=== PATIENT | female | born 1950 | race Hispanic/Latino ===

== ENCOUNTER 2017-09-14 03:17 | Emergency (ER) | payer OTHER ==
[~2017-09-14] VITALS: Ht 152.4 cm; Wt 69.4 kg
[~2017-09-14 03:17] MED LIST: ATORVASTATIN CA40 MG; HYDROCODONE-AP1 EA28 PO; LEVOTHYROXINE200 MC1 PO; Z.0.CALCIUM 500+VI1 PO; Z.0.LISINOPRIL20 MG PO; Z.0.METOPROLOL TART2 PO; Z.0.ZOLPIDEM TARTRA1 PO
--- OUTSIDE RECORDS SUMMARY | 2017-09-14 03:20 | XMS REPORT | Clinical Summary ---
Author Author [employer] [facility] [employer] Address Unknown Phone Unavailable Care Team Providers Care Manager Mall Name Role Phone Asked, Pcp PCP Unavailable Allergies No Known Allergies Current Medications Prescription Sig. Disp. Refills Start End Date Status Date levothyroxine (SYNTHROID, 04/27/20 Active LEVOXYL) 175 mcg tablet 17 traMADol (ULTRAM) 50 mg 04/27/20 Active tablet 17 metoprolol tartrate 04/27/20 Active (LOPRESSOR) 50 mg tablet 17 atorvastatin (LIPITOR) 10 04/27/20 Active MG tablet 17 DUEXIS 800-26.6 mg tablet 04/03/20 Active 17 pioglitazone-metformin 03/31/20 Active (ACTOPLUS MET) 15-850 mg 17 per tablet mupirocin (BACTROBAN) 2 % Apply to the inside of 22 g 0 06/04/20 ointmentIndications: each nostril BID 5 days 17 17 Primary osteoarthritis of prior to surgery left knee Active Problems Problem Noted Date Primary osteoarthritis of left knee 06/05/2017 Overview: Added automatically from request for surgery [id number] Encounters Date Type Specialty Care Team Description 08/26/2017 Telephone Orthopedic Surgery Arnav Holloway MD 06/04/2017 Orders Only Orthopedic Surgery Arnav Holloway MD Primary osteoarthritis of left knee (Primary Dx) 05/13/2017 Telephone Orthopedic Surgery Arnva Holloway MD 05/07/2017 Telephone Orthopedic Surgery Arnav Holloway MD 05/01/2017 Office Visit Orthopedic Surgery Arnav Holloway MD Chronic pain of left knee (Primary Dx); Primary osteoarthritis of left knee after 09/13/2016 Social History Tobacco Use Types Packs/Day Years Used Date Never Smoker Sex Assigned at Date Recorded Not on file Last Filed Vital Signs Vital Sign Reading Time Taken Blood Pressure - - Pulse - - Temperature - - Respiratory Rate - - Oxygen Saturation - - Inhaled Oxygen - - Concentration Weight 77.1 kg (170 lb) 05/01/2017 10:22 AM MANAGER PE Height 152.4 cm (5') 05/01/2017 10:22 AM MANAGER PE Body Mass Index 33.2 05/01/2017 10:22 AM MANAGER PE Plan of Treatment Date Type Specialty Care Team Description 11/04/2017 Pre-Admit Pre-Admission Testing Arnav Holloway MD Testing [id number] [facility] Appointment [address] [place], [place] [id number] 11/12/2017 Surgery General Surgery Arnav Holloway MD LEFT TOTAL KNEE [id number] [facility] REPLACEMENT [address] [place], [place] [id number] 11/12/2017 Procedure Pass General Surgery 11/12/2017 [facility] General Surgery Arnav Holloway MD Encounter [id number] [facility] [address] [place], [place] [id number] 11/19/2017 Office [place] [id number] [facility] [address] [place], [place] [id number] Genoveva Viera, PT Health Maintenance Due Date Last Done Comments COLONOSCOPY 1999 MAMMOGRAM 1999 ZOSTER VACCINE 2009 PNEUMOCOCCAL 2014 POLYSACCHARIDE VACCINE AGE 65 AND OVER PNEUMOCOCCAL-13 2014 INFLUENZA VACCINE 01/14/2017 04/11/2011, 03/10/2009 Results * XR Knee 4+ Vw Left (05/01/2017 10:43 AM) Specimen Performing Laboratory [facility] [address] [place] [address] Narrative Knee X-rays: 4 views of the left knee were reviewed.The images demonstrates joint space narrowing, [id number] articulation, subchondral cysts, sclerosis, varus alignment and marginal osteophytes after 09/13/2016 Insurance Payer Benefit Subscriber ID Type Phone Address Plan / Group AETNA AETNA xxxxxxxxxx HMO HMO,POS,EP O, [place] [address]
[2017-09-14] MEDS ORDERED: NIFEDIPINE 10 MG CAP PO ONE (03:45)
[2017-09-14 04:21] LABS: BASOPHILS % 0.2 % (0.0-1.0); EOSINOPHILS # (AUTO) 0.3 (0.0-0.4); EOSINOPHILS % 3.5 % (0.0-6.0); HEMATOCRIT 38.4 % (34.2-44.1); HEMOGLOBIN 12.5 g/dL (12.0-16.0); LYMPHOCYTES # (AUTO) 2.3 (1.0-3.2); LYMPHOCYTES % 26.2 % (18.0-39.1); MEAN CORPUSCULAR HEMOGLOBIN 26.9 pg (28-32); MEAN CORPUSCULAR HGB CONC 32.6 g/dL (31-35); MEAN CORPUSCULAR VOLUME 82.6 fL (81-99); MONOCYTES # (AUTO) 0.7 (0.2-0.8); MONOCYTES % 7.8 % (4.4-11.3); NEUTROPHILS # (AUTO) 5.3 (2.1-6.9); PLATELET COUNT 323 x10e3/uL (140-360); RED BLOOD COUNT 4.65 x10e6/uL (3.6-5.1); RED CELL DISTRIBUTION WIDTH 13.7 % (11.7-14.4)
[2017-09-14 04:28] LABS: BILIRUBIN,URINE NEGATIVE (NEGATIVE); CLARITY,URINE CLEAR (CLEAR); COLOR,URINE YELLOW (YELLOW); KETONES,URINE NEGATIVE (NEGATIVE); LEUKOCYTE ESTERASE ,URINE NEGATIVE (NEGATIVE); NITRITE,URINE NEGATIVE (NEGATIVE); PROTEIN,URINE DIPSTICK TRACE (NEGATIVE); URINE UROBILINOGEN 0.2 mg/dL (0.2 - 1)
[2017-09-14 04:31] LABS: INR 0.89; PARTIAL THROMBOPLASTIN TIME 29.2 seconds (23.8-35.5); PROTHROMBIN TIME 11.3 seconds (11.9-14.5)
--- NOTE | 2017-09-14 04:37 | Diagnostic Imaging Report ---
CHEST SINGLE (PORTABLE), 09/14/2017 3:38 AM Technique: CHEST SINGLE (PORTABLE) Comparison: None available. Clinical history: Hypertension Findings: Limited by portable technique. Heart/mediastinum: Mildly prominent cardiomediastinal silhouette accentuated by AP portable technique. Lungs/pleural spaces: Infrahilar opacity likely vascular confluent/crowding. No consolidation or edema. No effusion or pneumothorax. Impression: 1. Lines/Tubes: None 2. No acute abnormality. Signed by: Dr Peace Melendrez MD on 09/14/2017 4:33 AM
[2017-09-14 04:39] LABS: BACTERIA,URINE RARE /HPF; EPITHELIAL CELLS,URINE RARE /LPF; RBC,URINE 0-5 /HPF (0-5)
[2017-09-14 04:40] LABS: ALBUMIN 3.6 g/dL (3.5-5.0); ALBUMIN/GLOBULIN RATIO 0.9 (0.8-2.0); ANION GAP 13.8 mmol/L (8-16); CALCIUM 9.6 mg/dL (8.4-10.2); CREATININE, SERUM 0.98 mg/dL (0.57-1.11); MAGNESIUM 2.1 MG/DL (1.3-2.1); POTASSIUM 3.8 mmol/L (3.5-5.1)
[2017-09-14] MEDS ORDERED: KETOROLAC TROMETHAMINE 30 MG/ML VIAL IV STA (04:54)
[2017-09-14] MEDS ORDERED: DIAZEPAM 2 MG TAB PO ONE (05:00)
--- NOTE | 2017-09-14 05:33 | Diagnostic Imaging Report ---
EXAMINATION: Head CT HISTORY: Headache, hypertension or less COMPARISON: None. TECHNIQUE: Multidetector axial images were obtained without contrast from the foramen magnum to the vertex . The images were reconstructed using brain and bone algorithms. Thin section brain images were reformatted into coronal and sagittal planes. Intravenous contrast: None. Motion/streaking artifact limits the evaluation of the study particularly near the vertex region.. FINDINGS: Parenchyma: 1. No abnormal densities. 2. No mass or hemorrhage. No CT evidence of acute territorial vascular insult. Extra-axial spaces:No abnormal density. No extra-axial fluid collections Brain volume: Normal for age. Ventricles: No hydrocephalus or displacement. Arteries: No density suggestive of thrombus. Dural sinuses: No abnormal density. Extra-axial spaces: No abnormal density. Foramen magnum: No mass, Chiari malformation, or basilar invagination. Sella: No obvious mass. Paranasal/mastoid sinuses: Imaged portions unremarkable. Skull/Scalp: No lytic or blastic lesions. No fractures. IMPRESSION: No acute intracranial abnormality, particularly no evidence of hemorrhage. Signed by: Dr. Gretchen Lassiter M.D. on 09/14/2017 5:30 AM
== END 2017-09-14 06:16 | disposition left against medical advice (07) ==
LOC: ER 03:17
DX: R51 Headache (principal); I10 Essential (primary) hypertension; E03.9 Hypothyroidism, unspecified
CPT/HCPCS: 36415; 70450; 71045; 80053; 81001; 82550; 82553; 83735; 84484; 85025; 85610; 85730; 93005; 99284; J1885

== ENCOUNTER 2022-09-05 04:55 | Emergency (ER) | payer OTHER ==
[~2022-09-05] VITALS: Ht 152.4 cm; Wt 77.1 kg
[2022-09-05] MEDS ORDERED: KETOROLAC TROMETHAMINE 30 MG/ML VIAL IV STA (05:04)
[2022-09-05 05:11] LABS: BASOPHILS % 0.4 % (0.0-1.0); EOSINOPHILS # (AUTO) 0.7 (0.0-0.4); EOSINOPHILS % 7.9 % (0.0-6.0); HEMATOCRIT 39.2 % (34.2-44.1); HEMOGLOBIN 12.2 g/dL (12.0-16.0); LYMPHOCYTES # (AUTO) 2.7 (1.0-3.2); LYMPHOCYTES % 32.6 % (18.0-39.1); MEAN CORPUSCULAR HEMOGLOBIN 27.3 pg (28-32); MEAN CORPUSCULAR HGB CONC 31.1 g/dL (31-35); MEAN CORPUSCULAR VOLUME 87.7 fL (81-99); MONOCYTES # (AUTO) 0.7 (0.2-0.8); MONOCYTES % 7.9 % (4.4-11.3); NEUTROPHILS # (AUTO) 4.2 (2.1-6.9); NEUTROPHILS % 50.7 % (38.7-80.0); PLATELET COUNT 288 x10e3/uL (140-360); RED BLOOD COUNT 4.47 x10e6/uL (3.6-5.1); RED CELL DISTRIBUTION WIDTH 13.5 % (11.7-14.4)
[2022-09-05 05:24] LABS: INR 0.81; PROTHROMBIN TIME 11.7 seconds (11.9-14.5)
[2022-09-05 05:25] LABS: PARTIAL THROMBOPLASTIN TIME 32.8 seconds (23.8-35.5)
[2022-09-05 05:32] LABS: ALBUMIN 3.3 g/dL (3.5-5.0); ALBUMIN/GLOBULIN RATIO 0.9 (0.8-2.0); ANION GAP 14.6 mmol/L (8-16); CALCIUM 9.2 mg/dL (8.4-10.2); CREATININE, SERUM 1.15 mg/dL (0.57-1.11); POTASSIUM 4.6 mmol/L (3.5-5.1)
[2022-09-05 05:39] LABS: CREATINE KINASE MB 0.9 ng/mL (0-5.0)
[2022-09-05] MEDS ORDERED: NAPROSYN500 MG PO (05:47)
[2022-09-05 08:34] VITALS: BP 178/83
== END 2022-09-05 08:36 | disposition home or self-care (01) ==
LOC: ER 05:05
DX: R07.89 Other chest pain (principal); S46.811A Strain of other muscles, fascia and tendons at shoulder and upper arm level, right arm, initial encounter; M54.2 Cervicalgia; I10 Essential (primary) hypertension; E78.00 Pure hypercholesterolemia, unspecified
CPT/HCPCS: 36415; 71045; 80053; 82550; 82553; 83880; 84484; 85025; 85610; 85730; 93005; 99284; J1885

== ENCOUNTER 2023-01-05 14:17 | Emergency (ER) | payer SELFPAY ==
[~2023-01-05] VITALS: Ht 152.4 cm; Wt 77.1 kg
[~2023-01-05 14:17] MED LIST changes: +NAPROSYN500 MG PO
[2023-01-05] MEDS ORDERED: ACETAMINOPHEN 325 MG TAB PO ONE (15:15)
[2023-01-05] MEDS ORDERED: KETOROLAC TROMETHAMINE 30 MG/ML VIAL IV STA ×2 (15:15)
[2023-01-05] MEDS ORDERED: DIPHENHYDRAMINE HCL INJ 50 MG/ML VIAL IV ONE (15:15)
[2023-01-05] MEDS ORDERED: METOCLOPRAMIDE HCL 10 MG/2ML VIAL IV ONE ×2 (15:15)
[2023-01-05] MEDS ORDERED: SODIUM CHLORIDE 0.9% 1000ML 1,000 ML IV ONE (15:15)
[2023-01-05] MEDS ORDERED: ACETAMINOPHEN 325 MG TAB ONE (15:26)
[2023-01-05] MEDS ORDERED: DIPHENHYDRAMINE HCL INJ 50 MG/ML VIAL ONE (15:26)
[2023-01-05] MEDS ORDERED: SODIUM CHLORIDE 0.9% 1000ML 1,000 ML ONE (15:27)
[2023-01-05 15:40] LABS: BASOPHILS % 0.3 % (0.0-1.0); EOSINOPHILS # (AUTO) 0.6 (0.0-0.4); EOSINOPHILS % 5.4 % (0.0-6.0); HEMATOCRIT 41.3 % (34.2-44.1); HEMOGLOBIN 13.1 g/dL (12.0-16.0); LYMPHOCYTES # (AUTO) 2.6 (1.0-3.2); LYMPHOCYTES % 22.6 % (18.0-39.1); MEAN CORPUSCULAR HEMOGLOBIN 27.3 pg (28-32); MEAN CORPUSCULAR HGB CONC 31.7 g/dL (31-35); MONOCYTES # (AUTO) 0.7 (0.2-0.8); MONOCYTES % 5.9 % (4.4-11.3); NEUTROPHILS # (AUTO) 7.5 (2.1-6.9); NEUTROPHILS % 65.2 % (38.7-80.0); PLATELET COUNT 297 x10e3/uL (140-360); RED CELL DISTRIBUTION WIDTH 13.6 % (11.7-14.4)
[2023-01-05 16:00] LABS: ALBUMIN 4.2 g/dL (3.5-5.0); ANION GAP 15.2 mmol/L (8-16); CALCIUM 9.4 mg/dL (8.4-10.2); CREATININE, SERUM 1.24 mg/dL (0.57-1.11)
[2023-01-05 16:02] LABS: POTASSIUM 5.2 mmol/L (3.5-5.1)
[2023-01-05 17:58] VITALS: BP 171/67; PULSE 72; RESP 18; O2SAT 100
== END 2023-01-05 18:02 | disposition home or self-care (01) ==
LOC: ER 14:23
DX: R51.9 Headache, unspecified (principal); I10 Essential (primary) hypertension; E78.5 Hyperlipidemia, unspecified; E03.9 Hypothyroidism, unspecified; E78.00 Pure hypercholesterolemia, unspecified
CPT/HCPCS: 36415; 70450; 80053; 85025; 99284; J1200; J1885; J2765; J7030

== ENCOUNTER 2025-01-16 12:28 | Inpatient (IN) | payer MEDICARE ==
[~2025-01-16] VITALS: Ht 152.4 cm; Wt 78.0 kg
[2025-01-16] MEDS ORDERED: SODIUM CHLORIDE FLUSH 10 ML SYR IV PRN (12:45)
[2025-01-16 13:00] LABS: BASOPHILS % 0.3 % (0.0-1.0); EOSINOPHILS % 6.7 % (0.0-6.0); LYMPHOCYTES % 20.2 % (18.0-39.1); MONOCYTES % 7.6 % (4.4-11.3); NEUTROPHILS % 64.9 % (38.7-80.0); RED CELL DISTRIBUTION WIDTH 13.5 % (11.7-14.4)
[2025-01-16] MEDS ORDERED: BENICAR20 MG PO (13:02)
[2025-01-16] MEDS ORDERED: METHOCARBAMOL750 MG PO (13:02)
[2025-01-16] MEDS ORDERED: HYDROCHLOROTHIA25 MG PO (13:02)
[2025-01-16] MEDS ORDERED: CRESTOR40 MG PO (13:02)
[2025-01-16] MEDS ORDERED: ASPIRIN81 MG PO (13:02)
[2025-01-16 13:15] LABS: INR 0.8
[2025-01-16 13:22] LABS: EST GLOMERULAR FILTRATION RATE 32.0 ML/MIN (>=60)
[2025-01-16 13:58] LABS: LEUKOCYTE ESTERASE ,URINE NEGATIVE (NEGATIVE); PROTEIN,URINE DIPSTICK 2+ (NEGATIVE); URINE UROBILINOGEN 0.2 mg/dL (0.2 - 1)
[2025-01-16 14:10] LABS: EPITHELIAL CELLS,URINE FEW /LPF
[2025-01-16] MEDS: HYDRALAZINE HCL 20 MG/ML VIAL IV STA (15:05)
[2025-01-16 15:15] VITALS: RESP 16; TEMP 98
[2025-01-16] MEDS ORDERED: ONDANSETRON HCL INJ 2MG/ML 2ML 2 MG/ML VIAL IV PRN (15:45)
[2025-01-16 15:50] VITALS: PULSE 53
[2025-01-16] MEDS: SODIUM CHLORIDE 0.9% 1000ML 1,000 ML IV SCH (16:22)
[2025-01-16 16:30] VITALS: BP 155/56; PULSE 58; RESP 18; TEMP 97.8; O2SAT 99
[2025-01-16 16:34] VITALS: BP 174/57; PULSE 53; RESP 19; TEMP 97.7; O2SAT 100
[2025-01-16] MEDS ORDERED: MELATONIN 3 MG TAB PO PRN (17:30)
[2025-01-16] MEDS: HYDRALAZINE HCL 25 MG TAB PO SCH (17:30)
[2025-01-16] MEDS ORDERED: DOCUSATE SODIUM 100 MG CAP PO PRN (17:30)
[2025-01-16] MEDS ORDERED: HYDRALAZINE HCL 20 MG/ML VIAL IV PRN (17:30)
[2025-01-16] MEDS ORDERED: ALBUTEROL/IPRATROPIUM 3 ML NEB NEB PRN (17:30)
[2025-01-16 17:36] VITALS: BP 159/66; PULSE 62; RESP 16; TEMP 97.7; O2SAT 98
[2025-01-16 20:00] VITALS: BP 143/48; PULSE 54; RESP 17; TEMP 97.5; O2SAT 100
[2025-01-16] MEDS: ISOSORBIDE DINITRATE 20 MG TAB PO SCH (21:57)
[2025-01-17] VITALS (10 sets, daily range): BP systolic 113–162; BP diastolic 38–51; PULSE 58–77; RESP 18–20; TEMP 97.3–98; O2SAT 98–100
[2025-01-17] MEDS: LEVOTHYROXINE SODIUM 125 MCG TAB PO SCH (06:14)
[2025-01-17 06:16] LABS: BASOPHILS % 0.2 % (0.0-1.0); EOSINOPHILS % 6.8 % (0.0-6.0); LYMPHOCYTES % 25.7 % (18.0-39.1); MONOCYTES % 7.8 % (4.4-11.3); NEUTROPHILS % 59.0 % (38.7-80.0); RED CELL DISTRIBUTION WIDTH 13.4 % (11.7-14.4)
[2025-01-17 06:50] LABS: EST GLOMERULAR FILTRATION RATE 34.0 ML/MIN (>=60)
[2025-01-17] MEDS: CRESTOR 10MG PO SCH (09:18)
[2025-01-18 03:08] VITALS: BP 160/46; PULSE 81; RESP 18; TEMP 98.7; O2SAT 100
[2025-01-18 06:40] LABS: EST GLOMERULAR FILTRATION RATE 48.0 ML/MIN (>=60)
[2025-01-18 08:25] VITALS: BP 146/60; PULSE 86; RESP 18; TEMP 97.9; O2SAT 98
[2025-01-18 09:00] VITALS: BP 146/60; PULSE 86; RESP 18; TEMP 97.9; O2SAT 98
[2025-01-18] MEDS ORDERED: METOPROLOL TART50 MG PO (09:49)
[2025-01-18] MEDS ORDERED: HYDRALAZINE HCL25 MG PO (09:49)
[2025-01-18] MEDS ORDERED: ISOSORBIDE DINI10 MG PO (09:51)
[2025-01-18] MEDS ORDERED: HYDRALAZINE HCL 25 MG TAB PO SCH (14:00)
[2025-01-18] MEDS ORDERED: ISOSORBIDE DINITRATE 20 MG TAB PO SCH (15:00)
== END 2025-01-18 10:40 | disposition home or self-care (01) | DRG 683 ==
LOC: ER 12:39 → ERHOLD 15:40 → MED/SURG2 16:29 → OBSVTOIN 01-17 07:01
PROVIDERS: ADMIT Internal Medicine; ATTEND Internal Medicine
DX: N17.9 Acute kidney failure, unspecified (principal); E87.20 Acidosis, unspecified; I16.1 Hypertensive emergency; I67.4 Hypertensive encephalopathy; I12.9 Hypertensive chronic kidney disease with stage 1 through stage 4 chronic kidney disease, or unspecified chronic kidney disease; N18.30 Chronic kidney disease, stage 3 unspecified; R00.1 Bradycardia, unspecified; E03.9 Hypothyroidism, unspecified; E78.5 Hyperlipidemia, unspecified; M19.90 Unspecified osteoarthritis, unspecified site; R53.81 Other malaise; Z79.82 Long term (current) use of aspirin; Z79.890 Hormone replacement therapy; Z86.711 Personal history of pulmonary embolism
CPT/HCPCS: 36415; 70450; 71045; 80048; 80053; 81001; 83880; 84484; 85025; 85610; 85730; 93005; 94760; 99284; G0378; J7030